=== PATIENT | male | born 1940 | race Caucasian/White ===

== ENCOUNTER → 2016-09-20 | Outpatient (CLI) | payer OTHER, MEDICARE ==
[~2016-09-20] MED LIST: IOPAMIDOL (ISOVUE-300) 100 ML BTL IV ONE
[2016-09-20 14:32] LABS: CREATININE 1.2 mg/dL (0.7-1.3)
--- NOTE | 2016-09-20 16:42 | CT ---
CT Abdomen and Pelvis, With Contrast History: Right lower quadrant pain, R10.31. Technique: Axial contrast-enhanced images were obtained through the abdomen and pelvis following the uneventful administration of oral and 90 mL Isovue-300 intravenous contrast. Dose reduction techniqu es were utilized. Creatinine is 1.2. Comparison: Left inguinal ultrasound May 16, 2016. Aortic ultrasound October 13, 2015. Findings Abdomen: Mild centrilobular and paraseptal emphysema is present, with basilar scarring/atelectasis. The heart size is normal. There is a tiny pericardial effusion. A 5 mm hypodensity in the dome of the liver is qeg-kkjan-ov-characterize. The gallbladder is normal. Tiny hypodensities in the spleen are ufi-ydllm-rl-characterize. Pancreatic calcifications suggest sequela of previous pancreatitis. There is mild fullness of the adrenal glands bilaterally. A 28 Ho unsfield unit 1.5 cm structure in the mid left kidney (series #3, image #131) is too high of attenuat ion to definitively characterize as a cyst. Additional tiny hypodensities in the kidneys are too-sma [id number]. There is mild stool in the proximal colon. A moderate hiatal hernia is present, with thickening of t he visualized portions of the distal esophagus (series #3, image #1, e.g.). Sigmoid diverticulosis i s present, without evidence of diverticulitis. The colon and small bowel are normal caliber, without evidence of obstruction. The appendix is normal. There is no free fluid or air. A tiny fat-contai pelon periumbilical hernia is present. Ectasia of the abdominal aorta is not significantly changed, with moderate atherosclerosis, without d issection. The IVC, hepatic, portal, splenic, and superior mesenteric veins are patent. No patholog ically enlarged lymph nodes are identified. Severe degenerative change is present in the lumbar spine, with moderate spinal canal narrowing at L2 -L3 and L3-L4. Pelvis: The bladder is normal. The prostate is surgically absent. Surgical clips are present throu ghout the pelvis. There is no visible hernia. The common iliac arteries are ectatic, with moderate atherosclerosis. No aggressive osseous lesions are identified. Impression: 1. No definite etiology for the patient's right lower quadrant pain. 2. Circumferential thickening of the distal esophagus, which could be related to esophagitis but is nonspecific. 3. Moderate hiatal hernia. 4. Additional findings, as above. E:amm
== END ==
LOC: FIMAGING 13:37
PROVIDERS: ATTEND Surgery
DX: R10.31 Right lower quadrant pain (principal); K44.9 Diaphragmatic hernia without obstruction or gangrene; Z90.79 Acquired absence of other genital organ(s); K57.30 Diverticulosis of large intestine without perforation or abscess without bleeding; K86.89 Other specified diseases of pancreas; N28.9 Disorder of kidney and ureter, unspecified
CPT/HCPCS: 74177; Q9967

== ENCOUNTER → 2018-04-27 | Outpatient (CLI) | payer OTHER, MEDICARE ==
[~2018-04-27] MED LIST changes: +GADOBUTROL 10 ML VIAL IVP ONE; -IOPAMIDOL (ISOVUE-300) 100 ML BTL IV ONE
== END ==
LOC: FIMAGING 12:36
PROVIDERS: ATTEND Family Medicine
DX: I67.9 Cerebrovascular disease, unspecified (principal)
CPT/HCPCS: 70553; A9585; 82565-PO